=== PATIENT | female | born 1990 | race American Indian/Alaskan Native ===

== ENCOUNTER 2017-11-10 21:42 | Emergency (ER) | payer BC ==
[2017-11-10 21:50] VITALS: BMI 20.9
--- NOTE | 2017-11-10 23:13 | ED PDOC ---
Arrival/HPI - General Chief Complaint: Wound Check Time Seen by Provider: 11/10/17 22:05 Historian: Patient - History of Present Illness Narrative History of Present Illness (Text): 11/10/17 23:09 Pt is a 27 yo female who just returned from [place] for a cosmetic procedure that was done last . Pt present to the ED for possible suture loosening around the areola bilateral breasts. Pt states that there was active bleeding that worried her. She reports that she was scheduled to go to a follow up appointment before flying back to [place] but decided to forego it and return. Denies fever, chills, nausea vomiting diarrhea, discharge from the surgical sites, warmth or edema. 11/11/17 01:13 Time/Duration: Prior to Arrival Symptom Onset: Sudden Symptom Course: Unchanged, Improving Quality: Pressure, Tightness Severity Level: Mild Activities at Onset: Rest Context: Home Past Medical History - Provider Review Nursing Documentation Reviewed: Yes - Travel History Have you recently traveled outside w/in the past 3 mons?: Yes If Yes, travel location?: [place] - Past History Past History: No Previous - Infectious Disease Hx of Infectious Diseases: None - Tetanus Immunization Tetanus Immunization: Unknown - Reproductive Currently : Unknown - Past Medical History Past Medical History: No Previous - Cardiac Hx Cardiac Disorders: No - Pulmonary Hx Respiratory Disorders: No - Neurological Hx Neurological Disorder: No - HEENT Hx HEENT Disorder: No - Renal Hx Renal Disorder: No - Psychiatric Hx Substance Use: No - Surgical History Other/Comment: breast reconstruction 1 week ago - Anesthesia Hx Anesthesia Reactions: No Hx Malignant Hyperthermia: No Family/Social History - Physician Review Nursing Documentation Reviewed: Yes Family/Social History: Unknown Family HX Smoking Status: Never Smoked Hx Alcohol Use: Yes Frequency of alcohol use: Socially Hx Substance Use: No Allergies/Home Meds Allergies/Adverse Reactions: Allergies No Known Allergies Allergy (Verified 11/10/17 21:50) Review of Systems - Physician Review All systems were reviewed & negative as marked: Yes - Review of Systems Constitutional: Normal Eyes: Normal ENT: Normal Respiratory: Normal Cardiovascular: Normal Gastrointestinal: Normal Genitourinary Female: Normal Musculoskeletal: Normal Skin: Other (bilateal breast sutures open and were bleeding) Neurological: Normal Endocrine: Normal Hemo/Lymphatic: Normal Psychiatric: Normal Physical Exam Vital Signs Reviewed: Yes Vital Signs Temp Pulse Resp BP Pulse Ox 11/11/17 00:39 98.0 F 80 17 105/82 98 11/10/17 21:43 98.5 F 83 16 97/65 L 100 Temperature: Afebrile Blood Pressure: Normal Pulse: Regular Respiratory Rate: Normal Appearance: Positive for: Well-Appearing, Non-Toxic, Comfortable Pain Distress: None Mental Status: Positive for: Alert and Oriented X 3 - Systems Exam Head: Present: Atraumatic, Normocephalic Neck: Present: Normal Range of Motion Respiratory/Chest: Present: Clear to Auscultation, Good Air Exchange. No: Respiratory Distress, Accessory Muscle Use Cardiovascular: Present: Regular Rate and Rhythm, Normal S1, S2. No: Murmurs Abdomen: Present: Normal Bowel Sounds. No: Tenderness, Distention, Peritoneal Signs Breast/Axillary: Present: Other (cosmetic breast procedure with left and right bud-areola suture sites "open") Back: Present: Normal Inspection Upper Extremity: Present: Normal Inspection. No: Cyanosis, Edema Lower Extremity: Present: Normal Inspection. No: Edema Neurological: Present: GCS=15, CN II-XII Intact, Speech Normal Skin: Present: Warm, Dry, Normal Color. No: Rashes Psychiatric: Present: Alert, Oriented x 3, Normal Insight, Normal Concentration Medical Decision Making ED Course and Treatment: 11/10/17 23:13 Impression Pt is a 27 yo female who just returned from [place] for a cosmetic procedure that was done last . Pt present to the ED for possible suture loosening around the areola bilateral breasts. Plan Assess and dispo Progress Note Steri strips placed over vulnerable sutured areas; no active bleeding appreciated Advised to follow up with surgeon as instructed Disposition/Present on Arrival - Present on Arrival Any Indicators Present on Arrival: Yes History of DVT/PE: No History of Uncontrolled Diabetes: No Urinary Catheter: No History of Decub. Ulcer: No History Surgical Site Infection Following: None - Disposition Have Diagnosis and Disposition been Completed?: Yes Diagnosis: Suture check Disposition: HOME/ ROUTINE Disposition Time: 00:31 Patient Plan: Discharge Condition: GOOD Discharge Instructions (ExitCare): Care For Your Stitches (ED) Additional Instructions: Please follow up with your surgeon in the next few days. If you see any discharge or blood coming from the sutured site, return to the emergency department Referrals: Jono Alejandre MD [Primary Care Provider] - Follow up with primary Forms: [employer] (Amharic)
[2017-11-11 00:41] VITALS: BP 105/82; PULSE 80; RESP 17; TEMP 98; O2SAT 98
== END 2017-11-11 00:41 | disposition home or self-care (01) ==
LOC: ED 21:42
DX: Z48.89 Encounter for other specified surgical aftercare (principal)

== ENCOUNTER 2017-11-19 00:33 | Emergency (ER) | payer BC, OTHER ==
[2017-11-19 00:33] VITALS: BMI 20.9
[2017-11-19 00:42] VITALS: BP 100/66; PULSE 64; TEMP 97.7; O2SAT 98
[2017-11-19 00:43] VITALS: RESP 18
--- NOTE | 2017-11-19 01:14 | ED PDOC ---
Arrival/HPI - General Chief Complaint: Abnormal Skin Integrity Time Seen by Provider: 11/19/17 00:59 Historian: Patient - History of Present Illness Narrative History of Present Illness (Text): 11/19/17 01:10 A 27 year old female, with no significant past medical history, presents to the emergency department 2 weeks following breast reconstruction surgery.Patient was concerned about small area under right breast possibly slightly opened at suture line with questionable scanty drainage. The patient states that she had the reconstructive breast surgery in [place]. The patient has not yet followed up with the surgeon who performed the surgery.Denies any pain /tenderness to the area. The patient denies fevers, chills, headache, dizziness, chest pain, shortness of breath, dyspnea on exertion, cough, abdominal pain, nausea, vomiting, diarrhea, back pain, neck pain, urinary/bowel changes, or any other complaint. PMD: None Time/Duration: Other (2 weeks) Symptom Onset: Sudden Symptom Course: Unchanged Activities at Onset: Rest, Light Context: Home Past Medical History - Provider Review Nursing Documentation Reviewed: Yes - Past History Past History: No Previous - Infectious Disease Hx of Infectious Diseases: None - Tetanus Immunization Tetanus Immunization: Unknown - Past Medical History Past Medical History: No Previous - Cardiac Hx Cardiac Disorders: No - Pulmonary Hx Respiratory Disorders: No - Neurological Hx Neurological Disorder: No - HEENT Hx HEENT Disorder: No - Renal Hx Renal Disorder: No - Endocrine/Metabolic Hx Endocrine Disorders: No - Hematological/Oncological Hx Blood Disorders: No - Integumentary Hx Dermatological Disorder: No - Musculoskeletal/Rheumatological Hx Musculoskeletal Disorders: No - Gastrointestinal Hx Gastrointestinal Disorders: No - Genitourinary/Gynecological Hx Genitourinary Disorders: No - Psychiatric Hx Psychophysiologic Disorder: No Hx Substance Use: No - Surgical History Other/Comment: breast reconstruction 1 week ago - Anesthesia Hx Anesthesia: Yes Hx Anesthesia Reactions: No Hx Malignant Hyperthermia: No Family/Social History - Physician Review Nursing Documentation Reviewed: Yes Family/Social History: No Known Family HX Smoking Status: Never Smoked Hx Alcohol Use: No Hx Substance Use: No Allergies/Home Meds Allergies/Adverse Reactions: Allergies No Known Allergies Allergy (Verified 11/19/17 00:35) Home Medications: Home Meds Medication Instructions Recorded Confirmed No Known Home Med 11/19/17 11/19/17 Review of Systems - Physician Review All systems were reviewed & negative as marked: Yes - Review of Systems Constitutional: absent: Fevers, Night Sweats Respiratory: absent: SOB, Cough Cardiovascular: absent: Chest Pain, [place] Gastrointestinal: absent: Abdominal Pain, Stool Changes, Diarrhea, Nausea, Vomiting Genitourinary Female: absent: Urine Output Changes Musculoskeletal: absent: Back Pain, Neck Pain Skin: Other (Possible drainage suture site right breast) Neurological: absent: Headache, Dizziness Physical Exam Vital Signs Reviewed: Yes Vital Signs Temp Pulse Resp BP Pulse Ox 11/19/17 00:42 97.7 F 64 18 100/66 98 11/19/17 00:36 97.7 F 64 19 100/66 98 Temperature: Afebrile Blood Pressure: Normal Pulse: Regular Respiratory Rate: Normal Appearance: Positive for: Well-Appearing, Non-Toxic, Comfortable Pain Distress: None Mental Status: Positive for: Alert and Oriented X 3 - Systems Exam Respiratory/Chest: Present: Clear to Auscultation, Good Air Exchange. No: Respiratory Distress, Accessory Muscle Use Cardiovascular: Present: Regular Rate and Rhythm, Normal S1, S2. No: Murmurs Breast/Axillary: Present: Other (<2.5 cm scabbed area under right breast at sutured line site/no discharge/no erythema/no tenderness (karen Bangeas underwear hemmer present)) Neurological: Present: GCS=15, CN II-XII Intact, Speech Normal, Motor Func Grossly Intact, Normal Sensory Function Skin: Present: Warm, Dry, Normal Color. No: Rashes Lymphatic: No: Axillary Adenopathy Psychiatric: Present: Alert, Oriented x 3, Normal Insight, Normal Concentration Medical Decision Making ED Course and Treatment: 11/19/17 01:18 Impression: A 27 year old female presents to the emergency department complaining of possible drainage from area of suture site of her reconstructive breast surgery. Plan: -- Reassess and disposition Progress Notes: 11/19/17 01:11: Discussed case with neurosurgical nurse. Will come evaluate the patient. 11/19/17 02:08: administration vice president came to evaluate patient. Concurs no need for any intervention as the wound with no signs of any infection or discharge/ drainage. Advised patient to keep wound clean and dry and follow up with her doctor. - Scribe Statement The provider has reviewed the documentation as recorded by the Carlos Alberto Banegas Provider Scribe Attestation: All medical record entries made by the Scribe were at my direction and personally dictated by me. I have reviewed the chart and agree that the record accurately reflects my personal performance of the history, physical exam, medical decision making, and the department course for this patient. I have also personally directed, reviewed, and agree with the discharge instructions and disposition. Disposition/Present on Arrival - Present on Arrival Any Indicators Present on Arrival: No History of DVT/PE: No History of Uncontrolled Diabetes: No Urinary Catheter: No History of Decub. Ulcer: No History Surgical Site Infection Following: None - Disposition Have Diagnosis and Disposition been Completed?: Yes Diagnosis: Encounter for post surgical wound check Disposition: HOME/ ROUTINE Disposition Time: 01:37 Patient Plan: Discharge Condition: GOOD Additional Instructions: Keep area clean and dry/follow up with your doctor Forms: [employer] (Chinese)
--- NOTE | 2017-11-19 01:57 | CP.PCM.CON ---
History of Present Illness - History of Present Illness History of Present Illness: Surgery: Dr. Haddad CC: 2 weeks post-op breast augmentation w. drainage from incision HPI: 27F w. no significant PMH presents 2 weeks post-op from B/L breast augmentation w. complaints of drainage from R breast incision line. She denies any fever or chills, no pain, she states that the drainage has been "yellow" in color but denies any associated odor. She denies pain and does not report any N/ V/D, no CP/SOB, no WAGONER/blurred vision, no changes in appetite. PMH: none PSH: B/L breast augmentation Meds: none NKDA SOcial: No ETOH / tobacco / drugs Fhx: Non-contributory Review of Systems - Review of Systems All systems: reviewed and no additional remarkable complaints except Past Patient History - Infectious Disease Hx of Infectious Diseases: None - Tetanus Immunizations Tetanus Immunization: Unknown - Past Social History Smoking Status: Never Smoked - CARDIAC Hx Cardiac Disorders: No - PULMONARY Hx Respiratory Disorders: No - NEUROLOGICAL Hx Neurological Disorder: No - HEENT Hx HEENT Problems: No - RENAL Hx Chronic Kidney Disease: No - ENDOCRINE/METABOLIC Hx Endocrine Disorders: No - HEMATOLOGICAL/ONCOLOGICAL Hx Blood Disorders: No - INTEGUMENTARY Hx Dermatological Problems: No - MUSCULOSKELETAL/RHEUMATOLOGICAL Hx Musculoskeletal Disorders: No - GASTROINTESTINAL Hx Gastrointestinal Disorders: No - GENITOURINARY/GYNECOLOGICAL Hx Genitourinary Disorders: No - PSYCHIATRIC Hx Psychophysiologic Disorder: No Hx Substance Use: No - SURGICAL HISTORY Other/Comment: breast reconstruction 1 week ago - ANESTHESIA Hx Anesthesia: Yes Hx Anesthesia Reactions: No Hx Malignant Hyperthermia: No Meds Allergies/Adverse Reactions: Allergies Allergy/AdvReac Type Severity Reaction Status Date / Time No Known Allergies Allergy Verified 11/19/17 00:35 Physical Exam - Constitutional Appears: Non-toxic, No Acute Distress - Head Exam Head Exam: ATRAUMATIC, NORMOCEPHALIC - Eye Exam Eye Exam: EOMI - ENT Exam ENT Exam: Mucous Membranes Moist - Neck Exam Neck exam: Positive for: Full Rom - Respiratory Exam Respiratory Exam: NORMAL BREATHING PATTERN. absent: Accessory Muscle Use, Respiratory Distress - Cardiovascular Exam Cardiovascular Exam: REGULAR RHYTHM - GI/Abdominal Exam GI & Abdominal Exam: Soft. absent: Distended, Tenderness - Extremities Exam Extremities exam: Negative for: calf tenderness, pedal edema - Neurological Exam Neurological exam: Alert, Oriented x3 - Skin Additional comments: R Breast Examined w. rod buster helper in room: 2 weeks post-op augmentation, ~2.5cm scab overlying incision in the mammary fold. There is no erythema, the area is not warm to touch, there is no drainage expressable, and the area is non-tender Results - Vital Signs Recent Vital Signs: Last Vital Signs Temp 97.7 F 11/19/17 00:42 Pulse 64 11/19/17 00:42 Resp 18 11/19/17 00:42 BP 100/66 11/19/17 00:42 Pulse Ox 98 11/19/17 00:42 Assessment & Plan - Assessment and Plan (Free Text) Assessment: 27F presents for evaluation of post-surgical wound -No signs of infection -recommend local wound care: -continue to clean incision w. soap and water, do not scrub -keep incision covered w. gauze, continue to wear bra w good support -If symptoms worsen return to ED -will d/w attending Terese PGY3
== END 2017-11-19 01:40 | disposition home or self-care (01) ==
LOC: ED 00:33
DX: Z48.89 Encounter for other specified surgical aftercare (principal)

== ENCOUNTER 2018-01-07 21:32 | Emergency (ER) | payer BC ==
--- NOTE | 2018-01-07 21:55 | ED PDOC ---
Arrival/HPI - General Chief Complaint: Female Genitourinary Time Seen by Provider: 01/07/18 21:41 Historian: Patient - History of Present Illness Narrative History of Present Illness (Text): 01/07/18 21:54 Taylor Ortiz is a 27 year old female, P:0, currently 7 weeks , who presents to the emergency department complaining of vaginal bleeding today. Patient states she has been experiencing vaginal bleeding since earlier today with associated lower abdominal cramping and vomiting. Patient denies any fever , chills, chest pain, shortness of breath, diarrhea, urinary symptoms, back pain , neck pain, headache, dizziness, or any other complaints. Symptom Onset: Gradual Symptom Course: Unchanged Activities at Onset: Light Context: Home Past Medical History - Provider Review Nursing Documentation Reviewed: Yes - Past History Past History: No Previous - Infectious Disease Hx of Infectious Diseases: None - Tetanus Immunization Tetanus Immunization: Unknown - Past Medical History Past Medical History: No Previous - Cardiac Hx Cardiac Disorders: No - Pulmonary Hx Respiratory Disorders: No - Neurological Hx Neurological Disorder: No - HEENT Hx HEENT Disorder: No - Renal Hx Renal Disorder: No - Endocrine/Metabolic Hx Endocrine Disorders: No - Hematological/Oncological Hx Blood Disorders: No - Integumentary Hx Dermatological Disorder: No - Musculoskeletal/Rheumatological Hx Musculoskeletal Disorders: No - Gastrointestinal Hx Gastrointestinal Disorders: No - Genitourinary/Gynecological Hx Genitourinary Disorders: No - Psychiatric Hx Psychophysiologic Disorder: No Hx Substance Use: No - Surgical History Other/Comment: breast reconstruction 1 week ago - Anesthesia Hx Anesthesia: Yes Hx Anesthesia Reactions: No Hx Malignant Hyperthermia: No Family/Social History - Physician Review Nursing Documentation Reviewed: Yes Family/Social History: Unknown Family HX Smoking Status: Never Smoked Hx Alcohol Use: No Hx Substance Use: No Allergies/Home Meds Allergies/Adverse Reactions: Allergies No Known Allergies Allergy (Verified 01/07/18 21:37) Home Medications: Home Meds Medication Instructions Recorded Confirmed No Known Home Med 11/19/17 01/07/18 Review of Systems - Physician Review All systems were reviewed & negative as marked: Yes - Review of Systems Constitutional: Normal. absent: Fevers Eyes: Normal ENT: Normal Respiratory: Normal. absent: SOB, Cough Cardiovascular: Normal. absent: Chest Pain Gastrointestinal: Abdominal Pain, Vomiting. absent: Diarrhea Genitourinary Female: Vaginal Bleeding. absent: Dysuria, Frequency, Hematuria, Urine Output Changes Musculoskeletal: Normal Skin: Normal Neurological: Normal Endocrine: Normal Hemo/Lymphatic: Normal Psychiatric: Normal Physical Exam Vital Signs Reviewed: Yes Vital Signs Temp Pulse Resp BP Pulse Ox 01/08/18 03:00 88 16 127/43 L 99 01/08/18 00:10 80 16 120/66 99 01/07/18 21:38 98.1 F 100 H 20 96/64 L 98 Temperature: Afebrile Blood Pressure: Normal Pulse: Regular Respiratory Rate: Normal Appearance: Positive for: Well-Appearing, Non-Toxic, Comfortable Pain Distress: None Mental Status: Positive for: Alert and Oriented X 3 - Systems Exam Head: Present: Atraumatic, Normocephalic Pupils: Present: PERRL Extroacular Muscles: Present: EOMI Conjunctiva: Present: Normal Mouth: Present: Moist Mucous Membranes Neck: Present: Normal Range of Motion Respiratory/Chest: Present: Clear to Auscultation, Good Air Exchange. No: Respiratory Distress, Accessory Muscle Use Cardiovascular: Present: Regular Rate and Rhythm, Normal S1, S2. No: Murmurs Abdomen: No: Tenderness, Distention, Peritoneal Signs Back: Present: Normal Inspection Upper Extremity: Present: Normal Inspection. No: Cyanosis, Edema Lower Extremity: Present: Normal Inspection. No: Edema Neurological: Present: GCS=15, CN II-XII Intact, Speech Normal Skin: Present: Warm, Dry, Normal Color. No: Rashes Psychiatric: Present: Alert, Oriented x 3, Normal Insight, Normal Concentration Medical Decision Making ED Course and Treatment: 01/07/18 21:55 Impression: 27 year old female complaining of vaginal bleeding, lower abdominal cramping, and vomiting. Plan: -- Labs, blood type and screen, Beta-HCG -- Urinalysis -- Transvaginal US -- IV fluids -- Reassess and disposition Prior Visits: Notes and results from previous visits were reviewed. On 11/19/2017, pt was seen in the emergency department for possible drainage s/ p breast augmentation. Pt was d/c home. Progress Notes: 01/08/18 00:49 Transvaginal US shows: Gestation: No intrauterine gestational sac. Uterus/cervix: Endometrium: 1.2 cm in thickness. Closed cervix. Ovaries: RIGHT ovary: Normal. LEFT ovary: 2.3 x 2.5 x 1.7 cm thickwalled hypoechoic lesion. No adnexal masses. Free fluid: No free fluid. IMPRESSION: 1. No intrauterine gestation. DDX: Early IUP, missed , ectopic . 2. Left ovarian lesion, nonspecific but likely corpus luteal cyst. Intraovarian ectopic felt less likely but not entirely excluded. 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 Pt states she was afraid to mention this initially. 01/08/18 03:[address] Aimee Chicas, BIOLOGY LABORATORY ASSISTANT, who is aware and agrees with plan. States pt can be discharged with outpt follow-up. Patient in agreement with the plan to be discharged home. Patient is stable for discharge. Patient was instructed to follow up with physician or return if symptoms persist/worsen or new concerning symptoms arise. - Lab Interpretations Lab Results: 01/07/18 23:15 01/07/18 23:15 Lab Results 01/08/18 01:35: Blood Type A POSITIVE, Antibody Screen Negative, BBK History Checked No verified bt 01/08/18 01:35: PT 11.7, INR 1.03, APTT 30.8 01/08/18 00:55: Urine Color Red, Urine Appearance Bloody, Urine pH 6.0, Ur Specific [place] 1.020, Urine Protein >=300 H, Urine Glucose (UA) Negative, Urine Ketones Negative, Urine Blood Large H, Urine Nitrate Positive H, Urine Bilirubin Negative, Urine Urobilinogen 0.2, Ur Leukocyte Esterase Small H, Urine RBC Tntc, Urine WBC 5 - 10, Ur Epithelial Cells 0 - 2, Urine Bacteria Small 01/07/18 23:15: WBC 15.4 H, RBC 4.21, Hgb 12.4, Hct 36.3, MCV 86.2, MCH 29.5, MCHC 34.2, RDW 13.2, Plt Count 256, MPV 9.1 01/07/18 23:15: Beta HCG, Quant 03879.00 H 01/07/18 23:15: Sodium 141, Potassium 4.0, Chloride 105, Carbon Dioxide 21, Anion Gap 20, BUN 12, Creatinine 0.8, Est GFR ( Amer) > 60, Est GFR (Non- Af Amer) > 60, Random Glucose 94, Calcium 10.2, Total Bilirubin 0.3, AST 29, ALT 28, Alkaline Phosphatase 39, Total Protein 7.4, Albumin 4.5, Globulin 2.9, Albumin/Globulin Ratio 1.6 I have reviewed the lab results: Yes - RAD Interpretation Radiology Orders: 01/07/18 21:56 OB TRANSVAGINAL [US] Stat Cuff Slitter: Radiologist - Medication Orders Current Medication Orders: Discontinued Medications Sodium Chloride (Sodium Chloride 0.9%) 1,000 mls @ 999 mls/hr IV .Q1H1M STA Stop: 01/07/18 22:56 Last Admin: 01/07/18 22:35 Dose: 999 mls/hr eMAR Start Stop Document 01/07/18 22:35 MS (Rec: 01/08/18 02:36 MS [facility] [place]) Intravenous Solution Start Date 01/07/18 Start Time 23:15 End Date 01/08/18 End time 00:15 Total Infusion Time 60 - Scribe Statement The provider has reviewed the documentation as recorded by the Carlos Alberto Jose Provider Scribe Attestation: All medical record entries made by the Scribe were at my direction and personally dictated by me. I have reviewed the chart and agree that the record accurately reflects my personal performance of the history, physical exam, medical decision making, and the department course for this patient. I have also personally directed, reviewed, and agree with the discharge instructions and disposition. Disposition/Present on Arrival - Present on Arrival Any Indicators Present on Arrival: No History of DVT/PE: No History of Uncontrolled Diabetes: No Urinary Catheter: No History of Decub. Ulcer: No History Surgical Site Infection Following: None - Disposition Have Diagnosis and Disposition been Completed?: Yes Diagnosis: Complete Disposition: HOME/ ROUTINE Disposition Time: 03:37 Patient Plan: Discharge Patient Problems: Current Active Problems Problem Status Onset Complete Acute Condition: STABLE Discharge Instructions (ExitCare): Miscarriage (DC) Additional Instructions: Follow up with your doctor this week/any recurrent symptoms(recurrent worsening pain/bleeding) return to the emergency room Referrals: Keri Chicas MD [Staff Provider] - Follow up with primary Forms: [employer] (Japanese)
[2018-01-07] MEDS ORDERED: Sodium Chloride 0.9% 1,000 ML IV STA (21:56)
[2018-01-07 22:06] VITALS: TEMP 98.1; BMI 22.6
[2018-01-07 23:37] LABS: HEMOGLOBIN 12.4 g/dL (12.0-16.0); MEAN CELL VOLUME 86.2 fl (80.0-105.0); MEAN CORPUSCULAR HEMOGLOBIN 29.5 pg (25.0-35.0); MEAN CORPUSCULAR HGB CONC 34.2 g/dl (31.0-37.0); MEAN PLATELET VOLUME 9.1 fl (7.0-11.0); RBC 4.21 10^6/uL (3.5-6.1); RED CELL DISTRIBUTION WIDTH 13.2 % (11.5-14.5); WHITE BLOOD COUNT 15.4 10^3/ul (4.5-11.0)
[2018-01-07 23:40] LABS: ALB/GLOB RATIO 1.6 (1.1-1.8); ALBUMIN 4.5 g/dL (3.0-4.8); ALT/SGPT 28 U/L (7-56); AST/SGOT 29 U/L (14-36); BLOOD UREA NITROGEN 12 mg/dL (7-21); CALCIUM 10.2 mg/dL (8.4-10.5); GFR AFRICAN-AMERICAN > 60; GFR NON-AFRICAN AMERICAN > 60
--- NOTE | 2018-01-08 00:22 | US ---
EXAM: US First Trimester, Transabdominal US , Transvaginal CLINICAL HISTORY: 27 years old, female; Signs and symptoms; Lmp or gestational age (in weeks): 11/17/2017; Other: Bleeding clots; TECHNIQUE: Real-time transabdominal and transvaginal obstetrical ultrasound of the maternal pelvis and a first trimester with image documentation. Transvaginal imaging was used for better evaluation of the fetus and adnexa. COMPARISON: No relevant prior studies available. FINDINGS: Gestation: No intrauterine gestational sac. Uterus/cervix: Endometrium: 1.2 cm in thickness. Closed cervix. Ovaries: RIGHT ovary: Normal. LEFT ovary: 2.3 x 2.5 x 1.7 cm thickwalled hypoechoic lesion. No adnexal masses. Free fluid: No free fluid. IMPRESSION: 1. No intrauterine gestation. DDX: Early IUP, missed , ectopic . 2. Left ovarian lesion, nonspecific but likely corpus luteal cyst. Intraovarian ectopic felt less likely but not entirely excluded.
[2018-01-08 01:13] LABS: URINE BILIRUBIN NEGATIVE (NEGATIVE); URINE BLOOD LARGE (NEGATIVE); URINE GLUCOSE (UA) NEGATIVE (NEGATIVE); URINE LEUKOCYTE ESTERASE SMALL Leu/uL (NEGATIVE); URINE PROTEIN >=300 mg/dL (<30 mg/dL); URINE UROBILINOGEN 0.2 E.U./dL (<1 E.U./dL)
[2018-01-08 01:14] LABS: URINE APPEARANCE BLOODY (CLEAR); URINE COLOR RED (YELLOW)
[2018-01-08 01:20] LABS: URINE RBC TNTC /hpf (0-2)
[2018-01-08 01:21] LABS: URINE BACTERIA SMALL (NEG); URINE EPITHELIAL CELLS 0 - 2 /hpf (0-5)
[2018-01-08 02:24] LABS: INR 1.03 (0.93-1.08); PARTIAL THROMBOPLASTIN TIME 30.8 Seconds (25.1-36.5); PROTHROMBIN TIME 11.7 SECONDS (9.4-12.5)
[2018-01-08 03:13] VITALS: RESP 16; O2SAT 99
[2018-01-08 03:14] VITALS: BP 127/43; PULSE 88
== END 2018-01-08 03:45 | disposition home or self-care (01) ==
LOC: ED 21:32
DX: O03.9 Complete or unspecified spontaneous abortion without complication (principal); Z3A.01 Less than 8 weeks gestation of pregnancy
CPT/HCPCS: 76817; 80053; 81001; 84702; 85027; 85610; 85730; 86850; 86900; 87086; 96360; 99283; J7040